=== PATIENT | male | born 1950 | race Caucasian/White ===

== ENCOUNTER 2017-01-27 18:28 | Inpatient (IN) | payer MEDICARE, BC ==
[~2017-01-27] VITALS: Ht 157.5 cm; Wt 77.2 kg
[2017-01-27] MEDS ORDERED: ASPI81TA85 PO (18:56)
[2017-01-27] MEDS ORDERED: FLOM5CAP PO (18:56)
[2017-01-27] MEDS ORDERED: POTA550T2 PO (18:56)
[2017-01-27] MEDS ORDERED: SIMV40TA2 PO (18:56)
[2017-01-27] MEDS ORDERED: diphenhydrAMINE INJ 50MG/ML VIAL (J1200) IV ONE (19:45)
[2017-01-27] MEDS ORDERED: MORPHINE 4 MG/ML 1ML SYRINGE IV PRN (19:45)
[2017-01-27] MEDS ORDERED: METOCLOPRAMIDE INJ 10MG/2ML VIAL (J2765) IV ONE (19:45)
--- NOTE | 2017-01-27 19:55 | ECGEPIP ---
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
[2017-01-27 20:37] LABS: BASO % 0.1 % (0.0-1.0); EOS % 0.1 % (0.0-3.0); LARGE UNSTAINED CELL % 0.3 % (0.0-4.0); LYMPH # 0.7 K/mm3 (1.5-4.5); LYMPH % 6.2 % (24.0-44.0); MEAN CORPUSCULAR HEMOGLOBIN 31.3 pg (27.0-33.0); MEAN CORPUSCULAR HGB CONC 34.8 g/dl (32.0-36.5); MEAN CORPUSCULAR VOLUME 89.9 fl (80.0-96.0); MONO # 0.4 K/mm3 (0.0-0.8); MONO % 3.3 % (0.0-5.0); NEUTROPHILS # 9.8 K/mm3 (1.8-7.7); PLATELET COUNT, AUTOMATED 136 k/mm3 (150-450); RED CELL DISTRIBUTION WIDTH 12.7 % (11.5-14.5); WHITE BLOOD COUNT 10.9 K/mm3 (4.0-10.0)
--- NOTE | 2017-01-27 20:40 | REPUSA ---
CLINICAL HISTORY: Altered mental status COMPARISON: No study for comparison is available at the time of interpretation. TECHNIQUE: Head CT without contrast Brain: There is mild prominence of the lateral ventricles and 3rd ventricle, suggesting hydrocephalus versus normal pressure hydrocephalus. There is periventricular white matter low attenuation change s uggesting chronic small vessel ischemic disease. No intracranial hemorrhage, acute parenchymal edema or evident mass. Calvarium: Unremarkable. Sinuses (partially visualized): Clear. IMPRESSION: 1. Mild prominence of the ventricles suggests mild hydrocephalus versus normal pressure hydrocephalus . Differentiation of these entities is based upon clinical presentation rather than imaging features alone. Comparison of prior exams would be helpful, if available. 2. White matter changes of chronic small vessel ischemic disease.
[2017-01-27 20:43] LABS: INR 0.9
[2017-01-27 20:59] LABS: ANION GAP 7 MEQ/L (8-16); BLOOD UREA NITROGEN 16 MG/DL (7-18); CARBON DIOXIDE LEVEL 26 MEQ/L (21-32); CHLORIDE LEVEL 108 MEQ/L (98-107); CREATININE FOR GFR 1.22 MG/DL (0.70-1.30); GLOMERULAR FILTRATION RATE > 60.0 (>49); GLUCOSE, FASTING 141 MG/DL (80-110); POTASSIUM SERUM 4.2 MEQ/L (3.5-5.1); SODIUM LEVEL 141 MEQ/L (136-145)
--- NOTE | 2017-01-27 23:00 | REPUSA ---
MRI of the brain Clinical history: facial droop. Technique: Multiecho multiplanar MRI images of the brain were obtained without administration of cont rast. Diffusion weighted images with ADC mapping was also obtained. Comparison: CT, 01/27/2017. Findings: The ventricles and sulci are symmetric but prominent in size bilaterally. The brain parenchyma demons trates areas of restricted diffusion in the right basal ganglia. Additionally, there is a focus of re stricted diffusion in the right occipital lobe. Scattered areas of T2 hyperintensity in the subcortic al white matter is noted bilaterally. There is no midline shift, mass effect, or extra-axial fluid co llection. The midline intracranial structures do not demonstrate any gross abnormalities. The cervica l cranial junction is intact. The orbits are unremarkable. The visualized paranasal sinuses and masto id air cells are clear. The osseous structures and superficial soft tissues are unremarkable. The vas cular structures demonstrate appropriate flow voids. Impression: 1. Restricted diffusion in the right basal ganglia and right occipital lobe are consistent with acute infarcts at these sites. No significant edema or mass effect is seen at this time. 2. Moderate chronic small vessel ischemic disease and age-related atrophy also noted. A call is to be placed by our foam machine operator to the facility regarding these findings.
[2017-01-28] VITALS (11 sets, daily range): BP systolic 142–195; BP diastolic 86–103; O2SAT 93–95
[2017-01-28] MEDS ORDERED: ASPI81TAEC PO (00:34)
[2017-01-28] MEDS ORDERED: SALONPAS TD (00:34)
[2017-01-28] MEDS ORDERED: VITA400C7 PO (00:34)
[2017-01-28] MEDS ORDERED: VITA500T PO (00:34)
[2017-01-28] MEDS ORDERED: FISH1000 PO (00:34)
[2017-01-28] MEDS ORDERED: VITA10002 PO (00:34)
[2017-01-28] MEDS ORDERED: NS 1,000 ML IV SCH (00:45)
[2017-01-28] MEDS ORDERED: ONDANSETRON 4MG/2ML VIAL (J2405) IV PRN (00:45)
[2017-01-28] MEDS ORDERED: ASPIRIN 325 MG TAB PO STA (00:56)
[2017-01-28 01:20] LABS: ERYTHROCYTE SEDIMENTATION RATE 2 mm/hr (0-20)
[2017-01-28] MEDS: SENOKOT S TAB PO SCH ×3 (03:15→20:04)
[2017-01-28] MEDS: TAMSULOSIN 0.4 MG CAP PO SCH ×3 (03:15→20:04)
[2017-01-28] MEDS: VITAMIN E 400 INTERNATIONAL UNITS CAP PO SCH ×2 (03:16→20:05)
[2017-01-28] MEDS: SIMVASTATIN 40 MG TAB PO SCH ×2 (03:16→20:04)
[2017-01-28] MEDS: **hydrALAZINE HCL** 25 MG TAB PO SCH ×5 (03:22→23:08)
[2017-01-28] MEDS ORDERED: SLF 3 ML SYR IV PRN (03:45)
[2017-01-28 05:41] LABS: MEAN CORPUSCULAR HEMOGLOBIN 31.1 pg (27.0-33.0); MEAN CORPUSCULAR HGB CONC 34.5 g/dl (32.0-36.5); MEAN CORPUSCULAR VOLUME 90.1 fl (80.0-96.0); RED CELL DISTRIBUTION WIDTH 13.1 % (11.5-14.5); WHITE BLOOD COUNT 9.7 K/mm3 (4.0-10.0)
[2017-01-28 05:55] LABS: ANION GAP 8 MEQ/L (8-16); BLOOD UREA NITROGEN 15 MG/DL (7-18); CALCIUM LEVEL 8.3 MG/DL (8.8-10.2); CARBON DIOXIDE LEVEL 26 MEQ/L (21-32); CHLORIDE LEVEL 106 MEQ/L (98-107); CHOLESTEROL LEVEL 148 MG/DL (<200); CREATININE FOR GFR 1.07 MG/DL (0.70-1.30); GLOMERULAR FILTRATION RATE > 60.0 (>49); GLUCOSE, FASTING 107 MG/DL (80-110); MAGNESIUM LEVEL 2.3 MG/DL (1.8-2.4); POTASSIUM SERUM 3.8 MEQ/L (3.5-5.1); SODIUM LEVEL 140 MEQ/L (136-145); TRIGLYCERIDES LEVEL 115 MG/DL (<150)
--- NOTE | 2017-01-28 06:08 | HPE ---
DATE OF ADMISSION: 01/28/2017 PRIMARY CARE PROVIDER: Dr. Cisneros at [place], phone number [phone]. CHIEF COMPLAINT: Headache and left-sided facial droop. HISTORY OF PRESENT ILLNESS: This is a 67-year-old male patient with underlying medical history of dyslipidemia, BPH, obesity, history of transient ischemic attack (TIA) about 5 years ago, scoliosis. Denies history of myocardial infarction (IA) or diabetes. Presented for the past two days with some headache intermittently that is frontal, worsened with light with no relieving factor. Since 10:30 in the morning, patient has not been feeling well, unable to turn on air conditioner on the car. Has episode of fall, which he eased himself to the ground with no head trauma, loss of consciousness. Patient also has been dropping things. Especially weaker in the left arm. Family also noticed left-sided facial droop. Patient reported persistent headache. Denies any chest pain, pressure or discomfort. Denies fevers, chill. Denies palpitation. Denies history of atrial fibrillation (AFib). Furthermore, patient reported difficulty ambulating. ALLERGIES: To ACETAMINOPHEN, CHLORPHENIRAMINE, PENICILLIN, PSEUDOEPHEDRINE. PAST MEDICAL HISTORY: 1. Scoliosis. 2. Obesity. 3. BPH. 4. Dyslipidemia. 5. TIA. PAST SURGICAL HISTORY: None. SOCIAL HISTORY: Patient is visiting. Lives in [place]. Denies history of smoking or alcohol drinking, or illicit drug use. REVIEW OF SYSTEMS: Reported frontal headache worsened with light with no relieving factor. Reported left upper extremity weakness and left facial droop. Hard of hearing, baseline wears a hearing aid. All other review of system are negative. Also, report of fall and lethargy. HOME MEDICATION: - ascorbic acid 500 mg by mouth daily - aspirin 81mg by mouth nightly - vitamin B12 1000 mcg by mouth daily - fish oil 1000 mg by mouth daily - potassium 550 mg by mouth every evening - Zocor 40 mg by mouth nightly - Flomax 0.4 mg by mouth twice a day - vitamin E 400 units by mouth nightly PHYSICAL EXAMINATION: Vital Signs: Temperature 98.6, pulse 88, respirations 16, blood pressure 164/78, pulse oximetry 98% on room air. General: Patient obese, alert, oriented times three, in no acute distress. HEENT: Normocephalic, atraumatic. Pupils bilaterally equal, round and reactive. Pulmonary: Bilateral clear to auscultation. Cardiac: Regular rate and rhythm. Normal S1, S2. Abdomen: Obese. Soft. Nontender. Positive bowel sounds. Extremities: No edema of bilateral lower extremities. Neurologic: Left-sided facial droop. Left shoulder elevation has diminished. All other cranial nerves seems to be intact. Left upper arm slightly weaker than the right about 4/5. Bilateral lower extremity 5/5. Sensation to light, bilateral, symmetrical. Ggnzgv-zk-kahw diminished on the left side. LABORATORY: WBC 10.9, hemoglobin and hematocrit 11.8/45.5, platelets 136. Chemistry: Sodium 141, potassium 4.2, chloride 108, bicarbonate 26, BUN 16, creatinine 1.22. A1c 5.7. Cardiac enzymes negative times one. MRI shows restricted diffusion in the right basal ganglia with right occipital lobe that is consistent with acute infarct. EKG: Sinus rhythm at 72. ASSESSMENT AND PLAN: This is a 67-year-old male patient with underlying medical history of BPH, dyslipidemia, scoliosis, transient ischemic attack, admitted for cerebrovascular accident (CVA) and headache. PROBLEMS: 1. Headache and CVA. MRI/MRA of the brain. MRI of the neck. Will get MRI with contrast of the brain to rule out any mass given history of questionable history of cerebral mass as per patient. Hypercoagulable workup is ordered. Neurology has been consulted. Full dose aspirin 325 by mouth, as well as will continue Zocor for permissive hypertension. Blood pressure targeting of systolic 160 and diastolic 90-100. Intravenous (IV) fluids for gentle hydration. Speech and swallow, physical therapy (PT), occupational therapy (OT). Followup with neurology for further recommendation. Echocardiogram. Telemetry. 2. Hypertension. Permissive hypertension given active CVA. Hydralazine for blood pressure greater than 160. Continue to monitor. 3. Dyslipidemia. Continue statin. 4. BPH. Continue current medication. 5. Obesity complicating care. 6. Deep venous thrombosis (DVT) prophylaxis. Heparin subcu. DISPOSITION: Pending clinical improvement, neuro checks, neurology consultation, further stroke workup.
[2017-01-28] MEDS: HEPARIN SOD (PORCINE) 5000 UNITS/ML VIAL SC SCH ×3 (06:29→20:09)
[2017-01-28] MEDS: SLF 3 ML SYR IV SCH ×3 (06:29→20:05)
[2017-01-28] MEDS: ASCORBIC ACID 500 MG TAB PO SCH (08:22)
[2017-01-28] MEDS: OMEGA-3 1050MG CAPSULE PO SCH (08:23)
[2017-01-28] MEDS: CYANOCOBALAMIN 500 MCG TAB PO SCH (08:23)
--- NOTE | 2017-01-28 10:15 | REP ---
MRI BRAIN WITH CONTRAST: HISTORY: Infarction. CONTRAST: ProHance 25 mL. COMPARISON: MR 01/27/2017. There is enhancement of branches of the right anterior and middle cerebral arteries consistent with slow antegrade and/or retrograde collateral blood flow overlying the right parietal lobe in the area of the right parietal lobe infarction. There is no abnormal intraparenchymal enhancement. IMPRESSION: Abnormal arterial enhancement as described above. Signed by Tank Hooks MD 01/28/2017 10:19 A
--- NOTE | 2017-01-28 10:22 | REP ---
MRA CAROTIDS WITHOUT AND WITH CONTRAST: HISTORY: Infarction. CONTRAST: ProHance 25 mL. Unenhanced 2D itfn-wh-wuomca and contrast enhanced MR angiography were performed at the level of the carotid bifurcations. There is moderate stenosis of 30% of the right internal carotid artery at its origin. The origin of the right external carotid artery is normal. The distal left common carotid artery and origins of the left external and internal carotid arteries are normal in appearance. The vertebral arteries are equal in size and patent. IMPRESSION: Moderate stenosis of 30% of the right internal carotid artery at its origin. Signed by Tank Hooks MD 01/28/2017 10:22 A
[2017-01-28] MEDS ORDERED: traMADol 50 MG TAB PO ONE (10:30)
--- NOTE | 2017-01-28 11:27 | REPUSA ---
MRA of the brain . Clinical history: facial droop. Technique: [id number] MRA images of the brain were obtained without administration of contrast. 3 -D MIP images were also obtained. Findings: The vascular structures extending from the distal carotid and vertebrobasilar arterial syst ems, through the skull valley of [place], demonstrate normal caliber and contour. There is no evidence of an eurysm, stenosis, or thrombosis. Impression: Unremarkable MRA examination of the brain.
[2017-01-28] MEDS ORDERED: MORPHINE 2 MG/ML 1ML SYRINGE IV ONE (12:30)
[2017-01-28] MEDS: ASPIRIN 325 MG TAB PO SCH (20:04)
[2017-01-28] MEDS: PERCOCET 5MG/325MG TAB PO PRN (20:05)
[2017-01-28] MEDS ORDERED: diphenhydrAMINE INJ 50MG/ML VIAL (J1200) IV PRN (20:30)
[2017-01-28] MEDS ORDERED: diphenhydrAMINE 50 MG CAP PO PRN (23:00)
[2017-01-29 04:00] VITALS: BP 138/76
[2017-01-29] MEDS: SLF 3 ML SYR IV SCH ×3 (05:45→21:01)
[2017-01-29] MEDS: **hydrALAZINE HCL** 25 MG TAB PO SCH ×3 (05:46→17:33)
[2017-01-29] MEDS: HEPARIN SOD (PORCINE) 5000 UNITS/ML VIAL SC SCH ×3 (05:47→21:00)
[2017-01-29 05:53] LABS: MEAN CORPUSCULAR HEMOGLOBIN 31.4 pg (27.0-33.0); MEAN CORPUSCULAR HGB CONC 34.6 g/dl (32.0-36.5); MEAN CORPUSCULAR VOLUME 90.7 fl (80.0-96.0); RED CELL DISTRIBUTION WIDTH 12.9 % (11.5-14.5); WHITE BLOOD COUNT 7.2 K/mm3 (4.0-10.0)
[2017-01-29 06:17] LABS: ANION GAP 7 MEQ/L (8-16); BLOOD UREA NITROGEN 15 MG/DL (7-18); CALCIUM LEVEL 8.4 MG/DL (8.8-10.2); CARBON DIOXIDE LEVEL 26 MEQ/L (21-32); CHLORIDE LEVEL 104 MEQ/L (98-107); CREATININE FOR GFR 1.07 MG/DL (0.70-1.30); GLOMERULAR FILTRATION RATE > 60.0 (>49); GLUCOSE, FASTING 92 MG/DL (80-110); MAGNESIUM LEVEL 2.4 MG/DL (1.8-2.4); POTASSIUM SERUM 3.5 MEQ/L (3.5-5.1); SODIUM LEVEL 137 MEQ/L (136-145)
[2017-01-29 07:25] VITALS: BP 133/80
[2017-01-29] MEDS: OMEGA-3 1050MG CAPSULE PO SCH (09:27)
[2017-01-29] MEDS: TAMSULOSIN 0.4 MG CAP PO SCH ×2 (09:27→21:00)
[2017-01-29] MEDS: SENOKOT S TAB PO SCH ×2 (09:27→21:00)
[2017-01-29] MEDS: PERCOCET 5MG/325MG TAB PO PRN ×2 (09:29→17:34)
[2017-01-29] MEDS: CYANOCOBALAMIN 500 MCG TAB PO SCH (09:30)
[2017-01-29] MEDS: ASCORBIC ACID 500 MG TAB PO SCH (09:30)
[2017-01-29 12:00] VITALS: BP 143/89
--- NOTE | 2017-01-29 15:02 | CR ---
DATE OF CONSULTATION: 01/29/2017 REFERRING PROVIDER: Dr. Anna Simmons REASON FOR CONSULTATION: Suspected stroke. HISTORY OF PRESENT ILLNESS: Kamran Yanes is a 67-year-old right-handed male with a past medical history significant for hypertension and history of TIA in the past, presenting with 2-day history of headache. The patient states that on Wednesday morning he developed difficulty with figuring out how to turn the air conditioning on in his car. His headache has been quite severe. CT scan of the brain was negative; however, MRI of the brain showed patchy areas of right-sided basal ganglia, right occipital, and right parietal strokes. The patient was on 81 mg aspirin, which was increased to 325 mg daily. The patient continues to use a statin therapy and is on Zocor 40 mg. The patient denies any focal symptoms other than intermittent paresthesias of his left hand, which has improved. His gait is quite spastic. The patient states that he has been walking with spasticity for a number of years. His brother also has a similar condition. The patient has hyperreflexia throughout and likely has hereditary spastic paraparesis as an underlying condition which has been undiagnosed. He lives in [place]. He will need follow up with a local neurologist in [place] upon discharge. ALLERGIES: CHLORPHENIRAMINE, PENICILLIN, PSEUDOEPHEDRINE. The patient clarifies that there is no allergic reaction to acetaminophen, it just did not work for him. PAST MEDICAL HISTORY: 1. Scoliosis. 2. Obesity. 3. Benign prostatic hypertrophy (BPH). 4. Dyslipidemia. 5. History of traumatic brain injury. PAST SURGICAL HISTORY: None. SOCIAL HISTORY: The patient denies use of tobacco, alcohol or illicit drugs. FAMILY HISTORY: Brother with increased spasticity and rigidity of all four extremities and using forearm brace canes to walk. REVIEW OF SYSTEMS: 14-point review of systems obtained and is negative except as per history of present illness. The patient reports initial paresthesias of the left arm and left facial droop, which is improved. HOME MEDICATIONS: - ascorbic acid 500 mg by mouth daily - aspirin 81 mg by mouth at night - vitamin B12 1000 mcg daily - fish oil 1000 mg by mouth daily - potassium 550 mg by mouth at night - Zocor 40 mg by mouth at night - Flomax 0.4 mg by mouth twice a day - vitamin E 400 International Units by mouth at night PHYSICAL EXAMINATION: Blood pressure 187/103, pulse rate 77, respiratory rate is 20, temperature 98.9 degrees Fahrenheit, oxygenation 97% on room air. The patient is alert, oriented person, place and time. Current height 5 feet 2 inches. Current weight is 74.4 kg. The patient is awake, alert, oriented to person, place and time. Speech, language, comprehension, and repetition are intact. Pupils are 3 mm round, reactive to light. There does not appear to be any facial asymmetry activation. Palate elevates symmetrically. Tongue is midline. Hearing is subjectively decreased to finger rub bilaterally. Tongue is midline. Palate elevates symmetrically. No pronator drift. Strength is 5/5, including bilateral deltoids, biceps, triceps, handgrip, iliopsoas, quadriceps, anterior tibialis. Deep tendon reflexes are 3+ throughout. Negative Babinski signs. Romberg testing is negative. The patient ambulates with a spastic gait. Coordination: Normal hmnfci-yi-rbrt without any signs of ataxia, dysmetria. Sensory is intact to light touch in all four extremities. The patient denies having any visual field loss. ASSESSMENT: 1. Acute ischemic stroke of the right basal ganglia, right parietal and occipital lobe. 2. 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 PLAN: 1. Continue aspirin 325 mg by mouth daily, Zocor 40 mg by mouth daily. 2. Start Percocet 5/325 mg every four hours one to two tablets as needed for severe pain for ongoing headache. 3. Start Zofran 8 mg every 8 hours as needed for nausea, vomiting and migraine. 4. Start Benadryl 50 mg by mouth every 12 hours as needed for severe migraine. 5. Continue telemetry monitoring, physical therapy (PT) and occupational therapy (OT). 6. Obtain echocardiogram. 7. MR angiogram shows 30% right ICA stenosis. 8 Followup carotid ultrasound. The patient can followup with neurologist in [place] when he returns for formal evaluation and management of his stroke and suspicion for hereditary spastic paraparesis.
--- NOTE | 2017-01-29 15:53 | IPNPDOC ---
Text Note Date of Service The patient was seen on 01/29/17. NOTE Subjective: Patient is a 67 year old male with a PMHx of DLP, BPH, Obesity, Hx of TIA (5 years prior), Scoliosis who presented to the ER with headache. Patient's family has noted weakness of his left hand and left facial drooping. He presented to the ER and was found to have an acute stroke on the R parietal area based on MRI. Patient was seen and examined at the bedside. He notes that he is feeling fine. Denies headaches. Notes some mild left hand weakness. Objective: Vitals (See below) General: Lying in bed, no acute distress, comfortable, AAOx3 HEENT: NC, AT CVS: RRR, +S1S2 Lungs: Fair air entry b/l, -w/r/r Abdomen: Soft, ND, NT, +BSx4 Extremities: - Edema, - Calf tenderness Neuro: 4/5 strength in Left UE, 5/5 in all others Assessment and plan: 1. Acute CVA - Presented with left facial droop and left hand weakness - Physical reveals some weakness of the left hand - MRI 01/28: right basal ganglia, right occipital and right parietal infarction - Carotid MRI with stenosis of 30% on R side - Hypercoagulability workup pending - c/w ASA 325 and Simvastatin 40 - c/w PT - ECHO pending - Will complete telemetry monitoring for 72 hours - Will follow up with neurology as outpatient 2. Headache - c/w Percocet, Zofran and Benadryl 3. 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 HTN - BP allowed to remain between 140-180 - c/w Hydralazine q6h 5. DLP - c/w Simvastatin 6. BPH - c/w Tamsulosin 7. Obesity 8. DVT prophylaxis - c/w Heparin VS,Fishbone, I+O VS, Fishbone, I+O Laboratory Tests 01/29/17 05:31 Red Blood Count 4.88, Mean Corpuscular Volume 90.7, Mean Corpuscular Hemoglobin 31.4, Mean Corpuscular Hemoglobin Concent 34.6, Red Cell Distribution Width 12.9 , Calcium Level 8.4 L Vital Signs Date Time Temp Pulse Resp B/P (MAP) Pulse Ox O2 Delivery O2 Flow Rate FiO2 01/29/17 12:15 143/89 7/21/17 12:00 98.4 72 20 94 Room Air I&O- Last 24 Hours up to 6 AM 01/29/17 05:59 Intake Total 510 ml Output Total 101 ml Balance 409 ml CASIE ADAME MD Jan 29, 2017 15:52
[2017-01-29 16:00] VITALS: BP 150/90
[2017-01-29] MEDS: ONDANSETRON 4MG/2ML VIAL (J2405) IV PRN (16:36)
[2017-01-29 20:00] VITALS: BP 161/81
[2017-01-29] MEDS: SIMVASTATIN 40 MG TAB PO SCH (21:00)
[2017-01-29] MEDS: ASPIRIN 325 MG TAB PO SCH (21:00)
[2017-01-29] MEDS: VITAMIN E 400 INTERNATIONAL UNITS CAP PO SCH (21:03)
[2017-01-29 23:59] VITALS: BP 124/58
[2017-01-30] MEDS: ONDANSETRON 4MG/2ML VIAL (J2405) IV PRN (00:01)
[2017-01-30] MEDS: **hydrALAZINE HCL** 25 MG TAB PO SCH ×2 (00:31→06:00)
[2017-01-30 04:45] VITALS: BP 147/94
[2017-01-30] MEDS: HEPARIN SOD (PORCINE) 5000 UNITS/ML VIAL SC SCH ×3 (05:10→22:03)
[2017-01-30] MEDS: SLF 3 ML SYR IV SCH ×3 (05:10→22:03)
[2017-01-30] MEDS: PERCOCET 5MG/325MG TAB PO PRN ×2 (05:10)
[2017-01-30 06:38] LABS: MEAN CORPUSCULAR HEMOGLOBIN 31.5 pg (27.0-33.0); MEAN CORPUSCULAR HGB CONC 34.5 g/dl (32.0-36.5); MEAN CORPUSCULAR VOLUME 91.3 fl (80.0-96.0); RED CELL DISTRIBUTION WIDTH 12.9 % (11.5-14.5)
[2017-01-30 06:56] LABS: ANION GAP 9 MEQ/L (8-16); BLOOD UREA NITROGEN 16 MG/DL (7-18); CALCIUM LEVEL 8.6 MG/DL (8.8-10.2); CARBON DIOXIDE LEVEL 25 MEQ/L (21-32); CHLORIDE LEVEL 102 MEQ/L (98-107); CREATININE FOR GFR 1.23 MG/DL (0.70-1.30); GLOMERULAR FILTRATION RATE > 60.0 (>49); GLUCOSE, FASTING 133 MG/DL (80-110); MAGNESIUM LEVEL 2.2 MG/DL (1.8-2.4); SODIUM LEVEL 136 MEQ/L (136-145)
[2017-01-30] MEDS ORDERED: POTASSIUM CHLORIDE 10 MEQ SR TABLET PO ONE (07:30)
[2017-01-30 08:00] VITALS: BP 142/84
[2017-01-30] MEDS ORDERED: PNEUMOCOCCAL VACCINE 0.5ML SYRINGE(90732) PNEUMOVAX 23 IM ONE (09:00)
[2017-01-30 09:46] LABS: CALCIUM OXALATE CRYSTALS SMALL
[2017-01-30] MEDS: OMEGA-3 1050MG CAPSULE PO SCH (09:56)
[2017-01-30] MEDS: ASCORBIC ACID 500 MG TAB PO SCH (09:56)
[2017-01-30] MEDS: TAMSULOSIN 0.4 MG CAP PO SCH ×2 (09:56→22:03)
[2017-01-30] MEDS: SENOKOT S TAB PO SCH ×2 (09:56→22:03)
[2017-01-30] MEDS: CYANOCOBALAMIN 500 MCG TAB PO SCH (09:56)
--- NOTE | 2017-01-30 10:51 | ECHO ---
DATE OF PROCEDURE: 01/28/2017 DATE OF : 1950 AGE: 67 REFERRING PROVIDER: Dr. Simmons. PATIENT LOCATION: Room 3226. REASON FOR ECHOCARDIOGRAM: Cerebrovascular accident (CVA). 2D MEASUREMENTS: IVS: 1.3 cm LV: 3.3 cm LVPW: 1.3 cm LA: 3.7 cm Aorta: 2.8 cm IVC: 1.2 cm DOPPLER MEASUREMENTS: Peak velocity across the aortic valve: 1.1 m/s Peak velocity across the LVOT: 0.7 m/s Mitral E: 0.63 Mitral A: 0.84 Ratio 0.7 Maximum tricuspid valve velocity: 2.3 m/s 2D COMMENTS: 1. Normal left ventricular size, wall thickness and normal global left ventricular systolic function. The estimated global left ventricular systolic ejection fraction is 60% to 65%. 2. Normal left atrium. Normal right atrium and right ventricle. 3. The atrial septum appeared to be normal without evidence of defect or shunt. 4. Normal aortic root. 5. Trace pericardial effusion noted, no evidence of cardiac tamponade. 6. The aortic valve, mitral valve, and tricuspid valve appeared to be normal. The pulmonic valve also appeared to be normal. The proximal pulmonary artery branches were not well visualized. 7. The inferior vena cava was normal in size, central venous pressure is most likely normal. DOPPLER: It detects trace mitral regurgitation and mild tricuspid regurgitation. Trace pulmonic regurgitation also detected. The calculated pulmonary artery systolic pressure is about 30 mmHg. Abnormal relaxation pattern was noted across the mitral valve leaflets as well as the mitral valve annulus consistent with grade 1 left ventricular diastolic dysfunction. IMPRESSION: 1. Normal global left ventricular systolic function. There are features of left ventricular diastolic dysfunction, grade 1. 2. Trace mitral regurgitation. 3. Mild tricuspid regurgitation with probably mild pulmonary hypertension. 4. Trace pulmonic regurgitation. MTDD
--- NOTE | 2017-01-30 11:04 | IPNPDOC ---
Text Note Date of Service The patient was seen on 01/30/17. NOTE Subjective: Patient is a 67 year old male with a PMHx of DLP, BPH, Obesity, Hx of TIA (5 years prior), Scoliosis who presented to the ER with headache. Patient's family has noted weakness of his left hand and left facial drooping. He presented to the ER and was found to have an acute stroke on the R parietal area based on MRI. Patient was seen and examined at the bedside. He denies any problems this morning. Feels a little sleepy. Reports some strength in his left hand. Objective: Vitals (See below) General: Lying in bed, no acute distress, comfortable, AAOx3 HEENT: NC, AT CVS: RRR, +S1S2 Lungs: Fair air entry b/l, -w/r/r Abdomen: Soft, ND, NT, +BSx4 Extremities: - Edema, - Calf tenderness Neuro: 4/5 strength in Left UE, 5/5 in all others Assessment and plan: 1. Acute CVA - Presented with left facial droop and left hand weakness - Physical again shows left hand weakness, without any facial drooping - MRI 01/28: right basal ganglia, right occipital and right parietal infarction - Carotid MRI with stenosis of 30% on R side - Hypercoagulability workup pending - c/w ASA 325 and Simvastatin 40 - c/w PT - Discussed ECHO with Dr. Hoskins; appears to have normal EF, mild valvular heart disease and trace pericardial effusion - End to telemetry monitoring by tomorrow - Will follow up with his existing neurologist as outpatient 2. Headache - Currently does not have any headaches - c/w Percocet, Zofran and Benadryl 3. 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 HTN - BP allowed to remain between 140-180 - c/w Hydralazine q6h (with holding parameters of <160 SBP); will reduce to 10mg from 25mg 5. DLP - c/w Simvastatin 6. BPH - c/w Tamsulosin 7. Obesity 8. DVT prophylaxis - c/w Heparin VS,Fishbone, I+O VS, Fishbone, I+O Laboratory Tests 01/30/17 05:28 Red Blood Count 4.81, Mean Corpuscular Volume 91.3, Mean Corpuscular Hemoglobin 31.5, Mean Corpuscular Hemoglobin Concent 34.5, Red Cell Distribution Width 12.9 , Calcium Level 8.6 L Vital Signs Date Time Temp Pulse Resp B/P (MAP) Pulse Ox O2 Delivery O2 Flow Rate FiO2 01/30/17 08:00 98.3 66 18 142/84 (103) 95 Room Air I&O- Last 24 Hours up to 6 AM 01/30/17 06:00 Intake Total 480 ml Output Total 0 ml Balance 480 ml CASIE ADAME MD Jan 30, 2017 11:04
[2017-01-30 12:00] VITALS: BP 151/94
[2017-01-30] MEDS: **hydrALAZINE** 10 MG TAB PO SCH ×2 (13:51→17:55)
[2017-01-30 16:00] VITALS: BP 158/94
[2017-01-30 20:10] VITALS: BP 162/90
[2017-01-30] MEDS: SIMVASTATIN 40 MG TAB PO SCH (22:02)
[2017-01-30] MEDS: VITAMIN E 400 INTERNATIONAL UNITS CAP PO SCH (22:03)
[2017-01-30] MEDS: ASPIRIN 325 MG TAB PO SCH (22:03)
[2017-01-30 23:59] VITALS: BP 164/90
[2017-01-31] MEDS: **hydrALAZINE** 10 MG TAB PO SCH ×2 (00:13→05:46)
[2017-01-31] MEDS: PERCOCET 5MG/325MG TAB PO PRN ×4 (00:20→17:41)
[2017-01-31 04:21] VITALS: BP 154/79
[2017-01-31] MEDS: SLF 3 ML SYR IV SCH ×3 (05:45→21:48)
[2017-01-31] MEDS: HEPARIN SOD (PORCINE) 5000 UNITS/ML VIAL SC SCH ×3 (05:46→21:47)
[2017-01-31 06:06] LABS: MEAN CORPUSCULAR HEMOGLOBIN 31.3 pg (27.0-33.0); MEAN CORPUSCULAR HGB CONC 34.8 g/dl (32.0-36.5); RED CELL DISTRIBUTION WIDTH 12.8 % (11.5-14.5); WHITE BLOOD COUNT 6.8 K/mm3 (4.0-10.0)
[2017-01-31 06:28] LABS: ANION GAP 8 MEQ/L (8-16); BLOOD UREA NITROGEN 18 MG/DL (7-18); CALCIUM LEVEL 8.5 MG/DL (8.8-10.2); CARBON DIOXIDE LEVEL 26 MEQ/L (21-32); CHLORIDE LEVEL 104 MEQ/L (98-107); CREATININE FOR GFR 1.12 MG/DL (0.70-1.30); GLOMERULAR FILTRATION RATE > 60.0 (>49); GLUCOSE, FASTING 92 MG/DL (80-110); MAGNESIUM LEVEL 2.4 MG/DL (1.8-2.4); POTASSIUM SERUM 3.5 MEQ/L (3.5-5.1); SODIUM LEVEL 138 MEQ/L (136-145)
[2017-01-31 07:52] VITALS: BP 136/69
[2017-01-31] MEDS: SENOKOT S TAB PO SCH ×2 (09:13→21:10)
[2017-01-31] MEDS: CYANOCOBALAMIN 500 MCG TAB PO SCH (09:13)
[2017-01-31] MEDS: ASCORBIC ACID 500 MG TAB PO SCH (09:13)
[2017-01-31] MEDS: TAMSULOSIN 0.4 MG CAP PO SCH ×2 (09:13→21:10)
[2017-01-31] MEDS: OMEGA-3 1050MG CAPSULE PO SCH (09:13)
--- NOTE | 2017-01-31 11:19 | IPNPDOC ---
Text Note Date of Service The patient was seen on 01/31/17. NOTE Subjective: Patient is a 67 year old male with a PMHx of DLP, BPH, Obesity, Hx of TIA (5 years prior), Scoliosis who presented to the ER with headache. Patient's family has noted weakness of his left hand and left facial drooping. He presented to the ER and was found to have an acute stroke on the R parietal area based on MRI. Patient was seen and examined at the bedside. No new problems this morning or overnight. Objective: Vitals (See below) General: Lying in bed, no acute distress, comfortable, AAOx3 HEENT: NC, AT CVS: RRR, +S1S2 Lungs: Fair air entry b/l, -w/r/r Abdomen: Soft, ND, NT, +BSx4 Extremities: - Edema, - Calf tenderness Neuro: 4/5 strength in Left UE, 5/5 in all others Assessment and plan: 1. Acute CVA - Presented with left facial droop and left hand weakness - Physical again shows left hand weakness, without any facial drooping - MRI 01/28: right basal ganglia, right occipital and right parietal infarction - Carotid MRI with stenosis of 30% on R side - Hypercoagulability workup pending - c/w ASA 325 and Simvastatin 40 - c/w Physical therapy - not cleared yet - ECHO: Normal EF, mild TR, trace MR, mild pulmonary HTN, and trace pulmonic regurgitation - Will transition to Med Surg today; end of 72 hour tele monitoring - Will follow up with his existing neurologist as outpatient 2. Headache - Currently does not have any headaches - c/w Percocet, Zofran and Benadryl 3. 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 HTN - Will control BP at this time - Will stop Hydralazine - Will start Amlodipine 5mg daily 5. DLP - c/w Simvastatin 6. BPH - c/w Tamsulosin 7. Obesity 8. DVT prophylaxis - c/w Heparin Disposition: - Will c/w physical therapy now - Awaiting PT clearance - Will need to establish outpatient physical therapy if required; Patient [facility] [place] [facility], [place] Laboratory Tests 01/31/17 05:16 Red Blood Count 4.78, Mean Corpuscular Volume 90.0, Mean Corpuscular Hemoglobin 31.3, Mean Corpuscular Hemoglobin Concent 34.8, Red Cell Distribution Width 12.8 , Calcium Level 8.5 L Vital Signs Date Time Temp Pulse Resp B/P (MAP) Pulse Ox O2 Delivery O2 Flow Rate FiO2 01/31/17 07:52 98.2 68 18 136/69 (91) 96 Room Air I&O- Last 24 Hours up to 6 AM 01/31/17 05:59 Intake Total 600 ml Output Total 200 ml Balance 400 ml CASIE ADAME MD Jan 31, 2017 11:19
[2017-01-31] MEDS: amLODIPine 5 MG TAB PO SCH (11:30)
[2017-01-31 11:55] VITALS: BP 166/74
[2017-01-31 16:03] VITALS: BP 132/82
[2017-01-31] MEDS: VITAMIN E 400 INTERNATIONAL UNITS CAP PO SCH (21:10)
[2017-01-31] MEDS: SIMVASTATIN 40 MG TAB PO SCH (21:10)
[2017-01-31] MEDS: ASPIRIN 325 MG TAB PO SCH (21:10)
[2017-01-31 22:00] VITALS: BP 108/55
[2017-02-01] MEDS: SLF 3 ML SYR IV SCH (03:21)
[2017-02-01] MEDS: PERCOCET 5MG/325MG TAB PO PRN (03:21)
[2017-02-01 06:00] VITALS: BP 147/79
[2017-02-01 06:14] LABS: MEAN CORPUSCULAR HEMOGLOBIN 31.5 pg (27.0-33.0); MEAN CORPUSCULAR HGB CONC 34.9 g/dl (32.0-36.5); MEAN CORPUSCULAR VOLUME 90.1 fl (80.0-96.0); RED CELL DISTRIBUTION WIDTH 12.9 % (11.5-14.5); WHITE BLOOD COUNT 6.4 K/mm3 (4.0-10.0)
[2017-02-01] MEDS: HEPARIN SOD (PORCINE) 5000 UNITS/ML VIAL SC SCH (06:16)
[2017-02-01 06:35] LABS: ANION GAP 5 MEQ/L (8-16); BLOOD UREA NITROGEN 17 MG/DL (7-18); CALCIUM LEVEL 8.7 MG/DL (8.8-10.2); CARBON DIOXIDE LEVEL 29 MEQ/L (21-32); CHLORIDE LEVEL 105 MEQ/L (98-107); CREATININE FOR GFR 1.02 MG/DL (0.70-1.30); GLOMERULAR FILTRATION RATE > 60.0 (>49); GLUCOSE, FASTING 98 MG/DL (80-110); MAGNESIUM LEVEL 2.3 MG/DL (1.8-2.4); SODIUM LEVEL 139 MEQ/L (136-145)
[2017-02-01] MEDS: TAMSULOSIN 0.4 MG CAP PO SCH (10:31)
[2017-02-01] MEDS: ASCORBIC ACID 500 MG TAB PO SCH (10:32)
[2017-02-01] MEDS: OMEGA-3 1050MG CAPSULE PO SCH (10:32)
[2017-02-01] MEDS: CYANOCOBALAMIN 500 MCG TAB PO SCH (10:32)
[2017-02-01] MEDS: SENOKOT S TAB PO SCH (10:32)
[2017-02-01 10:36] VITALS: BP 142/78
[2017-02-01] MEDS: amLODIPine 5 MG TAB PO SCH (10:36)
[2017-02-01] MEDS ORDERED: ASPI325T PO (11:46)
[2017-02-01] MEDS ORDERED: AMLO5TAB2 PO (11:46)
[2017-02-01] MEDS ORDERED: DIPH50CA PO (11:49)
[2017-02-01] MEDS ORDERED: ZOFR8TAB4 PO (11:49)
[2017-02-01] MEDS ORDERED: PERCOCET PO (11:49)
[2017-02-01 14:00] VITALS: BP 161/91
[2017-02-03 08:09] LABS: PROTEIN C ANTIGEN 112 % (60-150); PROTEIN S ANTIGEN FREE 89 % (57-157); PROTEIN S ANTIGEN TOTAL 111 % (60-150); SJOGREN'S ANTI SS-A <0.2 AI (0.0-0.9); SJOGREN'S ANTI SS-B <0.2 AI (0.0-0.9)
--- NOTE | 2017-02-03 10:11 | DSES ---
DATE OF ADMISSION: 01/28/2017 DATE OF DISCHARGE: 02/01/2017 PRIMARY CARE PROVIDER: Dr. Cisneros at [place], phone number [phone]. TRAVEL INSURANCE AGENT IN THE HOSPITAL: Bryce Montemayor MD, neurology PROCEDURES IN THE HOSPITAL: Echocardiogram. DISCHARGE DIAGNOSES: 1. Acute cerebrovascular accident in the right basal ganglia, right occipital, and right parietal infraction. 2. Hypertension. 3. Dyslipidemia. 4. 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 5. Benign prostatic hypertrophy (BPH). 6. Scoliosis. 7. History of traumatic brain injury. 8. Migraine. DISCHARGE MEDICATIONS: - amlodipine 5 mg by mouth daily - aspirin 325 mg by mouth daily - diphenhydramine 50 mg by mouth twice a day as needed migraine - Zofran 8 mg by mouth every 8 hours as needed vomiting - oxycodone/acetaminophen 5/325 one tablet by mouth every 6 hours as needed pain - ascorbic acid 500 mg by mouth daily - cyanocobalamin 1000 mcg by mouth daily - fish oil 1000 mg by mouth daily - potassium gluconate 550 mg by mouth twice a day - simvastatin 40 mg at bedtime - Flomax 0.4 mg by mouth twice a day - vitamin E 400 mg at bedtime - Salonpas one patch transdermally daily as needed pain HOSPITAL COURSE: This is a 67-year-old male who is a resident of [facility], presented to the hospital with headache and left-sided facial droop. The patient initially had headache for 2 days, which was intermittent and was worsening with light without any relieving factor. He also had an episode of fall at home without any trauma or loss of consciousness. The patient then noticed weakness on his left side, mostly on the left arm, and he was dropping things, and the family noted left facial droop, so the patient was brought to the emergency room. In the emergency department (ED), the patient underwent an MRI and an MRA of the brain. The MRI of the brain showed restricted diffusion in the right basal ganglia and right occipital lobe consistent with acute infarcts. No significant edema or mass effect. Moderate chronic small vessel ischemic disease and age-related atrophy. MRA of the brain was normal. MRI of the carotids were done, which showed moderate 30% stenosis of the right internal carotid artery. The left carotid system was normal. The patient was seen by a neurologist, and his recommendations were followed. The patient was started on high-dose aspirin, as well as continued on his statin. The patient had an echocardiogram in the hospital, which showed an ejection fraction of 60% to 65%, grade 1 diastolic dysfunction, trace mitral regurgitation, mild tricuspid regurgitation, and mild pulmonary hypertension. The patient was seen by physical therapy; and after several sessions, it was felt the patient was back to close to his baseline functional status. On the day of discharge, the patient's vital signs were stable, he did not have any complaints, and he was close to his baseline functional status. PHYSICAL EXAMINATION: Vital Signs: Temperature 98, pulse 90, respiratory rate 18, blood pressure 161/91, pulse oximetry 95% in room air. General: The patient awake, alert, oriented times three, sitting up in chair, in no acute distress. HEENT: Normocephalic, atraumatic. Moist mucous membranes. Anicteric eyes. Chest: Clear to auscultation. Cardiovascular: S1, S2, regular. No rub, murmur, or gallop. Abdomen: Soft, nontender. Bowel sounds present. Extremities: No edema. LABORATORY DATA: WBC 6.4, hemoglobin 14.5, platelets 133. Sodium 139, potassium 4, chloride 105, bicarbonate 29, BUN 17, creatinine 1, glucose 98, calcium 8.7, magnesium 2.3. Hypercoagulable workup for stroke has been done. Most of the tests are pending. His lupus anticoagulant is normal. DISPOSITION: The patient is discharged home in stable condition. DISCHARGE INSTRUCTIONS: The patient to followup with primary care provider in 1 week. The patient should be referred to neurology for further followup. The patient advised outpatient physical therapy. Regular diet. Activity as tolerated.
== END 2017-02-01 15:00 | disposition home or self-care (01) | DRG 65 ==
LOC: M ED 18:28 → M ED INP 01-28 00:43 → M PCU 01-28 02:48 → M MSPAV 01-31 15:55
PROVIDERS: ADMIT Hospitalist; ATTEND Internal Medicine Nephrology
DX: I63.9 Cerebral infarction, unspecified (principal); G11.4 Hereditary spastic paraplegia; I10 Essential (primary) hypertension; E78.5 Hyperlipidemia, unspecified; N40.0 Benign prostatic hyperplasia without lower urinary tract symptoms; G43.909 Migraine, unspecified, not intractable, without status migrainosus; Z79.899 Other long term (current) drug therapy; Z79.82 Long term (current) use of aspirin; I27.2 Other secondary pulmonary hypertension; E66.9 Obesity, unspecified; Z88.0 Allergy status to penicillin; Z88.8 Allergy status to other drugs, medicaments and biological substances; M41.9 Scoliosis, unspecified